=== PATIENT | female | born 1995 | race African-American/Black ===

== ENCOUNTER → 2018-01-02 22:00 | Observation (INO) ==
[2018-01-02 18:18] LABS: Bilirubin,Urine Negative (Negative); Blood,Urine Negative (Negative); Clarity,Urine Cloudy (Clear); Color,Urine Yellow (Yellow); Glucose,Urine (UA) Normal (Normal); Ketones,Urine Trace mg/dL (Negative); Leukocyte Esterase,Urine Large (Negative); Nitrite,Urine Negative (Negative); PH,Urine 6.5 pH Units (5.0-8.0); Protein,Urine Negative (Neg-Trace); Specific Gravity,Urine 1.027 (1.010-1.025); Urobilinogen,Urine Normal (Normal)
[2018-01-02 18:20] LABS: Bacteria,Urine Few per hpf (None-Few); Hyaline Casts,Urine Few per lpf (None-Few); Squamous Epithelial Cell,Urine Many per lpf (None-Few); WBC,Urine 30-50 per hpf (0-3)
--- NOTE | 2018-01-02 18:37 | OB/GYN History & Physical ---
Date of Encounter: 01/02/18 Time of Encounter: 18:34 Assessment and Plan (1) 31 weeks gestation of Current visit: Yes Status: Acute admitted for observation (2) uterine contractions in third trimester, antepartum Current visit: Yes Status: Acute IV Bolus started CBC pending UA pending Terbutaline 0.25mg x1 SQ History of Present Illness Chief complaint: low abdominal cramping and back pain HPI: Ms. Lance is a 22 year old female at 31w6d presents to labor and delivery with complaints of lower abdominal cramping that started late last night following intercourse. Patient also reports pain on her right lower back that radiates down her leg at times. Patient reports she tried taking a hot shower to help relieve the discomfort but got no relief. Patient denies any dysuria, fever or chills, vaginal bleeding or discharge. Patient reports good movement and has also had some nausea. Patient denies any complications with and her primary OB provider is Dr. Todd. Past Med Surg Social Fam HX - Past Medical History Source: patient Medical history: no medical history Additional medical history: ovarian cysts Psychiatric history: no psych history - Past Surgical History Surgical History: non-contributory, orthopedic, other Additional surgical history: right hand surgery - Social History Smoking Status: Never smoker Smokeless Tobacco Status: No Alcohol use: none Drug use: none - Family History Mother Living Status: Still Living Hx Family Cardiac Disorders: No Hx Family Respiratory Disorders: No Hx Family Cancer: No Hx Family GI Disorders: No Hx Family Genitourinary Disorders: No Hx Family Endocrine Disorder: No Hx Family Musculoskeletal Disorders: No Hx Family Neuromuscular Disorders: No Hx Family Neurologic Disorders: No Hx Family HEENT Disorders: No Hx Family Autoimmune Disorders: No Hx Family Reproductive Disorders: No Hx Family Psychosocial Disorders: No Hx Family Medical Disorders: No Obstetrical History - Pregnancies : 1 Para: 0 Term: 0 : 0 Ab's: 0 Livin Medications and Allergies Ondansetron [Zofran] 1 tab PO TID 01/02/18 [History] Allergy/AdvReac Type Severity Reaction Status Date / Time aspirin Allergy See Verified 01/02/18 18:03 Comments Review of System OB - Constitutional Constitutional ROS IM: no chills, no fever(s), no headache(s) - Cardiovascular Cardiovascular: no chest pain, no edema, no irregular heart rhythm, no palpitations, no pedal edema, no syncope - Respiratory Respiratory: no dyspnea - Gastrointestinal Gastrointestinal: abdominal pain (per HPI), nausea (per HPI), no change in bowel habits, no constipation, no diarrhea, no heartburn, no vomiting - Genitourinary Genitourinary: no abnormal vaginal bleeding, no difficulty urinating, no dysuria, no flank pain, no urinary frequency, no urinary incontinence, no urinary urgency, no vaginal discharge, no vaginal odor, no vaginal pruritis Exam - Constitutional Constitutional: well developed, well nourished, average body habitus - HEENT HEENT: Normocephaly, Mucus Membranes Moist - Neck Neck exam: full ROM, supple - Lungs Respiratory exam: CTAB - Cardiovascular Cardiovascular exam: RRR, +S1, +S2 - Abdomen Abdomen: Present: bowel sounds normal, gravid, non tender - Extremities Extremities exam: full ROM, normal capillary refill, normal inspection Deep Tendon Reflex Grade: 2+ Normal - Cervix Dilation: 1 Effacement: 70 Station: -2 - Uterus Uterus exam: Present: normal size, normal contour - Anus/Rectum Anus/Rectum: Present: normal perianal skin - Comments Comments: Tenderness noted over bladder FHR 125 bpm moderate variability +15x15 accels no decels noted. Contractions with uterine irritability noted every 5 -6 min SVE: /70/-2 Results Abnormal lab results Urine Clarity Cloudy (Clear) A 01/02/18 18:05 Ur Specific [place] 1.027 (1.010-1.025) H 01/02/18 18:05 Urine Ketones Trace mg/dL (Negative) H 01/02/18 18:05 Ur Leukocyte Esterase Large (Negative) H 01/02/18 18:05 All other labs normal. - VTE Reasons for not Prescribing Prophylaxis: Treatment not Indicated - Low risk for VTE
[2018-01-02 18:42] LABS: Amphetamine Screen,Urine Negative ng/mL (Cutoff=1000); Barbiturate Screen,Urine Negative ng/mL (Cutoff=200); Benzodiazepines Screen,Urine Negative ng/mL (Cutoff=200); Cannabinoid Screen,Urine Negative ng/mL (Cutoff = 50); Cocaine Screen,Urine Negative ng/mL (Cutoff= 300); Opiate Screen,Urine Negative ng/mL (Cutoff=300); Phencyclidine Screen,Urine Negative ng/mL (Cutoff=25)
[2018-01-02 18:44] LABS: Mucus,Urine Moderate (Few); Renal Epithelial Cells,Urine Few per hpf (None-Few); Transitional Epi Cells,Urine Few per hpf (None-Few); Yeast,Urine Few per hpf (None Seen)
[2018-01-02 18:56] LABS: Basophils % 0.1 %; Eosinophils % 0.2 %; Hematocrit 30.9 % (35.3-44.9); Hemoglobin 9.8 g/dL (11.5-15.4); Immature Granulocytes % 0.4 % (0-4); Lymphocytes # 1.8 K/mcL (0.6-4.6); Lymphocytes % 18.4 %; Mean Corpuscular HGB Conc 31.7 g/dL (31.6-35.5); Mean Corpuscular Hemoglobin 25.6 pg (28.0-33.3); Mean Corpuscular Volume 80.7 fL (83.0-100.0); Mean Platelet Volume 10.2 fL (9.4-12.4); Monocytes # 0.9 K/mcL (0.0-1.3); Monocytes % 9.3 %; Neutrophils # 6.9 K/mcL (1.6-8.9); Platelet Count 355 K/mcL (140-400); Red Blood Count 3.83 M/mcL (3.82-4.97); Segmented Neutrophils % 71.6 %
--- NOTE | 2018-01-02 20:55 | Discharge Summary ---
Date of Encounter: 01/02/18 Time of Encounter: 20:54 - Discharge Diagnosis (1) 31 weeks gestation of Priority: Primary Status: Acute Comments: admitted for observation (2) uterine contractions in third trimester, antepartum Priority: Secondary Status: Acute Comments: No cervical change Discussed patient, assessment and POC with patient with Dr. Solis. No new orders at this time. Plan to discharge patient home. Patient to return tomorrow at 1900 for 2nd betamethasone shot. (3) Yeast infection Priority: Secondary Status: Acute - Discharge Medications Prescriptions: Ferrous Sulfate 325 mg PO DAILY #30 tablet Terconazole Vag CRM [Terazol] 1 appl VG HS #1 tube Home Medications: Ferrous Sulfate 325 mg PO DAILY #30 tablet 01/02/18 [Rx] Ondansetron [Zofran] 1 tab PO TID 01/02/18 [History] Terconazole Vag CRM [Terazol] 1 appl VG HS #1 tube 01/02/18 [Rx] Allergies/Adverse Reactions: Allergy/AdvReac Type Severity Reaction Status Date / Time aspirin Allergy See Verified 01/02/18 18:03 Comments Data Procedures and tests throughout hospitalization: Laboratory Tests 01/02/18 01/02/18 01/02/18 18:05 18:05 18:33 WBC 9.6 RBC 3.83 Hgb 9.8 L Hct 30.9 L MCV 80.7 L MCH 25.6 L MCHC 31.7 RDW 15.0 H Plt Count 355 MPV 10.2 Immature Gran % 0.4 Seg Neutrophils % 71.6 Lymphocytes % 18.4 Monocytes % 9.3 Eosinophils % 0.2 Basophils % 0.1 Neutrophils # 6.9 Lymphocytes # 1.8 Monocytes # 0.9 Eosinophils # 0.0 Basophils # 0.0 Urine Color Yellow Urine Clarity Cloudy A Urine pH 6.5 Ur Specific [place] 1.027 H Urine Protein Negative Urine Glucose (UA) Normal Urine Ketones Trace H Urine Blood Negative Urine Nitrite Negative Urine Bilirubin Negative Urine Urobilinogen Normal Ur Leukocyte Esterase Large H Urine Microscopic RBC 3-5 H Urine Microscopic WBC 30-50 H Ur Squamous Epith Cells Many H Ur Transition Epith Cell Few Ur Renal Epithelial Cell Few Urine Bacteria Few Hyaline Casts Few Urine Mucus Moderate H Urine Yeast Few H Ur Culture Indicated? NO. A Urine Opiates Screen Negative Ur Barbiturates Screen Negative Ur Phencyclidine Scrn Negative Ur Amphetamines Screen Negative U Benzodiazepines Scrn Negative Urine Cocaine Screen Negative U Marijuana (THC) Screen Negative Ur Drug Screen Interp See Below Labs on day of discharge: Labs from last 24 hours 01/02/18 01/02/18 01/02/18 18:33 18:05 18:05 WBC 9.6 RBC 3.83 Hgb 9.8 L Hct 30.9 L MCV 80.7 L MCH 25.6 L MCHC 31.7 RDW 15.0 H Plt Count 355 MPV 10.2 Immature Gran % 0.4 Seg Neutrophils % 71.6 Lymphocytes % 18.4 Monocytes % 9.3 Eosinophils % 0.2 Basophils % 0.1 Neutrophils # 6.9 Lymphocytes # 1.8 Monocytes # 0.9 Eosinophils # 0.0 Basophils # 0.0 Urine Color Yellow Urine Clarity Cloudy A Urine pH 6.5 Ur Specific [place] 1.027 H Urine Protein Negative Urine Glucose (UA) Normal Urine Ketones Trace H Urine Blood Negative Urine Nitrite Negative Urine Bilirubin Negative Urine Urobilinogen Normal Ur Leukocyte Esterase Large H Urine Microscopic RBC 3-5 H Urine Microscopic WBC 30-50 H Ur Squamous Epith Cells Many H Ur Transition Epith Cell Few Ur Renal Epithelial Cell Few Urine Bacteria Few Hyaline Casts Few Urine Mucus Moderate H Urine Yeast Few H Ur Culture Indicated? NO. A Urine Opiates Screen Negative Ur Barbiturates Screen Negative Ur Phencyclidine Scrn Negative Ur Amphetamines Screen Negative U Benzodiazepines Scrn Negative Urine Cocaine Screen Negative U Marijuana (THC) Screen Negative Ur Drug Screen Interp See Below Date of admission: 01/02/18 17:39 Discharging clinician: Neda Varma Anticipated date of discharge: 01/02/18 - Patient Status Disposition: Home, Self-Care Condition: Good Functional capacity at discharge: independent ambulation - Discharge Instructions Follow Up With: Halima Todd MD [Partnered Physician] - - Diet and Activity Activity: increase activity as tolerated Diet: regular diet Hospital Course DRUG AND ALCOHOL COUNSELLOR Time Attestation: Total time spent providing and/or coordinating discharge services: Time Spent: Less than 30 minutes Exam - Constitutional General appearance IM: A&O X 3, pleasant, answers questions appropriately - Other Additional findings: SVE 1/70/-2, no cervical change in 2 hours FHr 125 bpm moderate variability +15x15 accels no decels noted. CAt. 1 tracing. No contractions noted - VTE Reasons for not Prescribing Prophylaxis: Treatment not Indicated - Low risk for VTE
[~2018-01-02 22:00] MED LIST: Betamethasone Acet/SodPhos 6 MG/ML MDV IM SCH; Ondansetron 4 MG/2 ML VIAL IVP ONE; Ringers Solution, Lactated 1,000 ML IVC ONE; Ringers Solution, Lactated 1,000 ML ONE; Terbutaline 1 MG/ML VIAL SQ ONE; Terconazole Vag CRM 20 GM TUBE VG SCH
== END | disposition home or self-care (01) ==
LOC: 1NENULAB
PROVIDERS: ADMIT Advanced Practice Midwife; ATTEND Advanced Practice Midwife

== ENCOUNTER → 2018-01-07 00:03 | Observation (INO) ==
--- NOTE | 2018-01-06 23:16 | OB/GYN Progress Note ---
Date of Encounter: 01/07/18 Time of Encounter: 23:13 - Assessment and Plan (1) 32 weeks gestation of Status: Acute Cervix has not made change from previous exam in hospital Given dose of milk of magnesia Encouraged increased water intake and higher fiber diet Urinalysis - WNL Discharge home with labor precautions Follow up in office as scheduled for routine care and PRN (2) Constipation Status: Acute Qualifiers: Constipation type: unspecified constipation type Qualified Code(s): K59.00 - Constipation, unspecified (3) NST (non-stress test) reactive Status: Acute Subjective - Subjective Principal diagnosis: Constipation Interval history: Ms Lance is a at 32 weeks 3 days that presents to triage with c/o contractions, vaginal pressure, and feeling like her fetus's arm is coming out. She denies intercourse in the past 48 hours. She states positive movement. She denies headache, vision changes, epigastric pain, leaking of fluid, and vaginal discharge/bleeding. She was seen earlier this week for labor, vomiting, and dehydration and was given a course of BMZ. She is seen by Dr Todd for her care and last saw her today for a routine visit. Antepartum ROS: movement normal, contractions, no loss of fluid, no vaginal bleeding Objective - Exam FHR: auscultation normal, category 1 FHR comments: Baseline 130 - appropriate for gestation. No contractions per palpation or per toco Abdomen: Present: soft, gravid Uterus: Present: normal. Absent: firm, tenderness Cervical dilation: 1 Cervix effacement: 70 station: -3 Comments: large amount of hard stool palpable in the rectum during vaginal exam.
[2018-01-06 23:40] LABS: Bilirubin,Urine Negative (Negative); Blood,Urine Negative (Negative); Clarity,Urine Cloudy (Clear); Color,Urine Yellow (Yellow); Glucose,Urine (UA) 250 mg/dL (Normal); Ketones,Urine Negative (Negative); Leukocyte Esterase,Urine Negative (Negative); Nitrite,Urine Negative (Negative); PH,Urine 7.5 pH Units (5.0-8.0); Protein,Urine Negative (Neg-Trace); Specific Gravity,Urine 1.025 (1.010-1.025); Urobilinogen,Urine Normal (Normal)
[2018-01-06 23:44] LABS: Bacteria,Urine None Seen per hpf (None-Few); Hyaline Casts,Urine None Seen per lpf (None-Few); RBC,Urine 0-3 per hpf (0-3); Squamous Epithelial Cell,Urine Many per lpf (None-Few); WBC,Urine 0-3 per hpf (0-3)
[2018-01-06 23:51] LABS: Amphetamine Screen,Urine Negative ng/mL (Cutoff=1000); Barbiturate Screen,Urine Negative ng/mL (Cutoff=200); Benzodiazepines Screen,Urine Negative ng/mL (Cutoff=200); Cannabinoid Screen,Urine Negative ng/mL (Cutoff = 50); Cocaine Screen,Urine Negative ng/mL (Cutoff= 300); Opiate Screen,Urine Negative ng/mL (Cutoff=300); Phencyclidine Screen,Urine Negative ng/mL (Cutoff=25)
[~2018-01-07 00:03] MED LIST changes: -Betamethasone Acet/SodPhos 6 MG/ML MDV IM SCH; +MOM Conc 10 ML UD.LIQ PO SCH; -Ondansetron 4 MG/2 ML VIAL IVP ONE; -Ringers Solution, Lactated 1,000 ML IVC ONE; -Ringers Solution, Lactated 1,000 ML ONE; +Sennosides/Docusate Sodium TABLET PO PRN; -Terbutaline 1 MG/ML VIAL SQ ONE; -Terconazole Vag CRM 20 GM TUBE VG SCH
== END | disposition home or self-care (01) ==
LOC: 1NENULAB
PROVIDERS: ADMIT Advanced Practice Midwife; ATTEND Advanced Practice Midwife

== ENCOUNTER → 2018-01-17 01:30 | Observation (INO) ==
[2018-01-17 00:02] LABS: Amphetamine Screen,Urine Negative ng/mL (Cutoff=1000); Barbiturate Screen,Urine Negative ng/mL (Cutoff=200); Benzodiazepines Screen,Urine Negative ng/mL (Cutoff=200); Cannabinoid Screen,Urine Negative ng/mL (Cutoff = 50); Cocaine Screen,Urine Negative ng/mL (Cutoff= 300); Opiate Screen,Urine Negative ng/mL (Cutoff=300); Phencyclidine Screen,Urine Negative ng/mL (Cutoff=25)
[2018-01-17 00:13] LABS: Bilirubin,Urine Negative (Negative); Blood,Urine Negative (Negative); Color,Urine Yellow (Yellow); Glucose,Urine (UA) Normal (Normal); Ketones,Urine 15 mg/dL (Negative); Leukocyte Esterase,Urine Trace (Negative); Nitrite,Urine Negative (Negative); Protein,Urine Negative (Neg-Trace); Specific Gravity,Urine 1.012 (1.010-1.025); Urobilinogen,Urine Normal (Normal)
[2018-01-17 00:16] LABS: Bacteria,Urine Moderate per hpf (None-Few); Clarity,Urine Cloudy (Clear); Hyaline Casts,Urine None Seen per lpf (None-Few); RBC,Urine 0-3 per hpf (0-3); Squamous Epithelial Cell,Urine Many per lpf (None-Few)
--- NOTE | 2018-01-17 01:25 | Discharge Summary ---
Date of Encounter: 01/17/18 Time of Encounter: 01:25 - Discharge Diagnosis (1) 33 weeks gestation of Priority: Primary Status: Acute Comments: Admitted to observation for abdominal cramping. Rare contractions noted on toco monitor To follow-up with OB physician on Wednesday as scheduled Cervix unchanged from last exam approximately 2 weeks ago (2) Abdominal cramping Priority: Secondary Status: Acute Comments: Rare contractions noted on toco monitor Follow-up on Wednesday as scheduled with Dr. Todd (3) NST (non-stress test) reactive Priority: Secondary Status: Acute Comments: 130 bpm, moderate variability, 15 x 15 accelerations - Discharge Medications Home Medications: Ferrous Sulfate 325 mg PO DAILY #30 tablet 01/02/18 [Rx] Ondansetron [Zofran] 1 tab PO TID 01/02/18 [History] Multivitamin [Flintstones] 1 each PO DAILY 01/06/18 [History] Allergies/Adverse Reactions: Allergy/AdvReac Type Severity Reaction Status Date / Time aspirin Allergy See Verified 01/06/18 23:14 Comments Data Procedures and tests throughout hospitalization: Laboratory Tests 01/16/18 01/16/18 23:41 23:41 Urine Color Yellow Urine Clarity Cloudy A Urine pH 7.0 Ur Specific [place] 1.012 Urine Protein Negative Urine Glucose (UA) Normal Urine Ketones 15 H Urine Blood Negative Urine Nitrite Negative Urine Bilirubin Negative Urine Urobilinogen Normal Ur Leukocyte Esterase Trace H Urine Microscopic RBC 0-3 Urine Microscopic WBC 5-15 H Ur Squamous Epith Cells Many H Urine Bacteria Moderate H Hyaline Casts None Seen Ur Culture Indicated? NO. A Urine Opiates Screen Negative Ur Barbiturates Screen Negative Ur Phencyclidine Scrn Negative Ur Amphetamines Screen Negative U Benzodiazepines Scrn Negative Urine Cocaine Screen Negative U Marijuana (THC) Screen Negative Ur Drug Screen Interp See Below Labs on day of discharge: Labs from last 24 hours 01/16/18 01/16/18 23:41 23:41 Urine Color Yellow Urine Clarity Cloudy A Urine pH 7.0 Ur Specific [place] 1.012 Urine Protein Negative Urine Glucose (UA) Normal Urine Ketones 15 H Urine Blood Negative Urine Nitrite Negative Urine Bilirubin Negative Urine Urobilinogen Normal Ur Leukocyte Esterase Trace H Urine Microscopic RBC 0-3 Urine Microscopic WBC 5-15 H Ur Squamous Epith Cells Many H Urine Bacteria Moderate H Hyaline Casts None Seen Ur Culture Indicated? NO. A Urine Opiates Screen Negative Ur Barbiturates Screen Negative Ur Phencyclidine Scrn Negative Ur Amphetamines Screen Negative U Benzodiazepines Scrn Negative Urine Cocaine Screen Negative U Marijuana (THC) Screen Negative Ur Drug Screen Interp See Below Date of admission: 01/16/18 23:33 Discharging clinician: Kristan Wilson Anticipated date of discharge: 01/17/18 - Patient Status Disposition: Home, Self-Care Condition: Good Functional capacity at discharge: independent ambulation Overall status at discharge: patient is back to baseline - Discharge Instructions - Diet and Activity Activity: resume usual activities as tolerated Diet: regular diet Hospital Course ADMINISTRATIVE MANAGER Time Attestation: Total time spent providing and/or coordinating discharge services: Time Spent: Less than 30 minutes Exam - Constitutional General appearance IM: cooperative, A&O X 3, no acute distress, answers questions appropriately - Respiratory Respiratory exam: Present: CTAB - Cardiovascular Cardiovascular exam IM: Present: RRR, +S1, +S2 - GI/Abdominal GI/Abdominal exam IM: normal bowel sounds - Rectal Rectal exam: deferred - Extremities Exam Extremities exam IM: Present: full ROM, normal capillary refill, normal inspection - Neurological Exam Neurological exam: alert, normal gait, oriented X3 - VTE Reasons for not Prescribing Prophylaxis: Treatment not Indicated - Low risk for VTE
== END | disposition home or self-care (01) ==
LOC: 1NENULAB
PROVIDERS: ADMIT Registered Nurse; ATTEND Registered Nurse